=== PATIENT | female | born 1960 | race Caucasian/White ===

== ENCOUNTER 2023-09-10 08:50 | Outpatient (AMB) | payer OTHER, SELFPAY ==
[2023-09-10 09:21] VITALS: BP 126/74; PULSE 68; TEMP 36.6; O2SAT 98; BMI 22.9
--- NOTE | 2023-09-10 09:21 | MHC.OFFWIV ---
Intake Vital Signs 09/10/23 09:21 Height 5 ft 6 in Weight 142 lb BMI 22.9 BP 126/74 Blood Pressure Location Lt brachial Position Sitting Pulse 68 Pulse Source Pulse Oximeter Temp 97.9 F Temp Source Oral Pulse Oximetry (%) 98 Oxygen Delivery Method Room Air Intake Visit Reasons: [employer] RT ear pain Intake Note: pt is here for right ear pain Patient Tobacco Use Status: Never used Tobacco Allergies No Known Allergies Allergy (Verified 09/10/23 09:22) Do you need a note to return to daycare/school/sports/work: No HPI HPI Comments History of Present Illness Details 63-year-old female presents today complaining of right ear pain and decreased hearing. She states the symptoms occurred for about a week. [facility] Social History Patient Tobacco Use Status: Never used Tobacco Review of Systems Const All systems reviewed & are unremarkable except as noted in HPI and below Eyes Reports no additional complaints ENT Reports no additional complaints Card Reports no additional complaints Resp Reports no additional complaints GI Reports no additional complaints Physical Exam Vital Signs: Last Vital Signs Temp 97.9 F 09/10/23 09:21 Pulse 68 09/10/23 09:21 BP 126/74 09/10/23 09:21 Pulse Ox 98 09/10/23 09:21 Oxygen Delivery Method Room Air 09/10/23 09:21 BMI result Body Mass Index 22.9 Const General: healthy appearing and no acute distress HEENT Head: Yes normal to inspection, Yes normocephalic and Yes atraumatic Ears: TM normal on the left and unable to visualize TM on the right Face and sinus: Yes normal facial exam Mouth: Normal oral and palatal mucosa present Throat: Yes posterior oropharynx normal Resp Effort & Inspection: normal respiratory effort Auscultation: clear to auscultation bilaterally Cardio Rate: regular rate Rhythm: regular rhythm Office Procedures Cerumen Removal From which ear canal was the cerumen removed: right Removal: irrigation Notes: patient tolerated procedure well and ear canal clear [id number] Irrigation/Lavage Results Reviewed Results Reviewed: After the cerumen removal appears the patient has a erythematous and bulging tympanic membrane on the right. We will treat her for otitis media discuss this with the patient Assessment & Plan Assessment & Plan (1) Otitis media: Code(s): H66.90 - Otitis media, unspecified, unspecified ear (2) Cerumen debris on tympanic membrane: Code(s): H61.20 - Impacted cerumen, unspecified ear Plan: The patient will take amoxicillin for a week. Follow up with PCP Plan See plan Medications: New amoxicillin 875 mg PO BID 7 days 14 tabs 0RF Coding Level of Care Code Est Pt Level 3 (48405) Diagnoses Otitis media H66.90 Cerumen debris on tympanic membrane H61.20 CPT Codes Office Procedure - CPT: 51553-Ult Irrigation/Lavage ([id number])
== END 2023-09-10 10:09 | disposition home or self-care (01) ==
PROVIDERS: Visit Provider Physician Assistant Medical
DX: H66.90 Otitis media, unspecified, unspecified ear (principal); H61.21 Impacted cerumen, right ear
CPT/HCPCS: 69209; 99213

== ENCOUNTER 2023-09-18 08:17 | Outpatient (AMB) | payer OTHER, SELFPAY ==
--- NOTE | 2023-09-18 08:18 | AM.OFFWIN_ITS ---
Intake Vital Signs 09/18/23 08:21 Weight 138 lb BP 110/68 Blood Pressure Location Lt brachial Position Sitting Pulse 57 Pulse Source Pulse Oximeter Temp 98 F Temp Source Oral Pulse Oximetry (%) 100 Oxygen Delivery Method Room Air Intake Visit Reasons: EP f/u ear pain Intake Note: Patient here to follow up on right ear pain and was put on antibiotics for 1 week which helped a ton but started to feel pain again last night. Patient Tobacco Use Status: Never used Tobacco Allergies No Known Allergies Allergy (Verified 09/18/23 08:22) Do you need a note to return to daycare/school/sports/work: No HPI HPI Comments History of Present Illness Details 63 y/o female patient who presents to [facility] clinic with c/o right ear pain. Pt was seen 4/[facility] and given Abx for 1 week. Pt feels like the pain is back, started yesterday night. PFSH Social History Patient Tobacco Use Status: Never used Tobacco Review of Systems Const All systems reviewed & are unremarkable except as noted in HPI and below Physical Exam Vital Signs: Last Vital Signs Temp 98 F 09/18/23 08:21 Pulse 57 09/18/23 08:21 BP 110/68 09/18/23 08:21 Pulse Ox 100 09/18/23 08:21 Oxygen Delivery Method Room Air 09/18/23 08:21 Const General: comfortable and no acute distress Orientation/consciousness: patient oriented x3 HEENT Head: Yes normocephalic Ears: external ears normal and TM abnormal obstructed by cerumen bilateral General nose exam: Normal nasal mucous membranes and turbinates present Face and sinus: Yes sinuses nontender Mouth: moist mucous membranes Throat: Yes posterior oropharynx normal Neuro General: patient oriented x3, gait normal and moves all extremities Psych Speech and movement: Normal speech and movement present Office Procedures Cerumen Removal From which ear canal was the cerumen removed: bilateral Removal: irrigation Notes: patient tolerated procedure well [id number] Irrigation/Lavage Assessment & Plan Assessment & Plan (1) Cerumen debris on tympanic membrane: Code(s): H61.20 - Impacted cerumen, unspecified ear Qualifiers: Laterality: bilateral Qualified Code(s): H61.23 - Impacted cerumen, bilateral Plan: - Both ears irrigated in the Office today. - Pt tolerated procedure well - Unable to see TM even after Ear Irrigation - Rx'd Debrox for 7 days. - Acetaminophen for pain relief. - F/U with PCP Medications: New isopropyl alcohol in glycerin 95-5 % (Debrox Swimmer's Ear) 5 drps otic (ears) BID 30 mL 1RF EAR WAX H61.23 - Impacted cerumen, bilateral acetaminophen 1,000 mg (2 x 500 mg) PO Q6H PRN 30 caps 0RF pain (scale score 1- 3) H92.01 - Otalgia, right ear Coding Level of Care Code Est Pt Level 4 (40975) Diagnoses Cerumen debris on tympanic membrane of both ears H61.23 Laterality: bilateral CPT Codes Office Procedure - CPT: 53799-Msa Irrigation/Lavage ([id number]) Time Spent (min) 20
[2023-09-18 08:21] VITALS: BP 110/68; PULSE 57; TEMP 36.6; O2SAT 100
== END 2023-09-18 08:59 | disposition home or self-care (01) ==
PROVIDERS: Visit Provider Nurse Practitioner Family
DX: H61.23 Impacted cerumen, bilateral (principal)
CPT/HCPCS: 69209; 99214